=== PATIENT | male | born 1950 | race Caucasian/White ===

== ENCOUNTER 2016-08-08 08:25 | Inpatient (IN) | payer OTHER ==
[2016-08-08] VITALS (14 sets, daily range): BP systolic 72–123; BP diastolic 56–73
[~2016-08-08] VITALS: Ht 162.6 cm; Wt 80.0 kg
[~2016-08-08 08:25] MED LIST: ASPIR-LOW81 MG PO; ATORVASTATIN CA40 MG PO; CLOPIDOGREL75 MG PO; TRIAMTERENE-HC1 EACH PO
[2016-08-08 08:51] LABS: EOSINOPHIL (%) 0.9 % (0-5); EOSINOPHIL COUNT 0.1 K/uL (0-0.3); HEMATOCRIT 54.7 % (38.0-50.0); IMMATURE GRANULOCYTE (%) 0.5 % (0.0-0.7); IMMATURE GRANULOCYTE COUNT 0.1 K/uL; INSTRUMENT ABS NEUTROPHIL CT 8.1 K/uL; LYMPHOCYTE COUNT 1.7 K/uL (1.0-2.8); MCH 29.6 PG (29.0-34.0); MEAN PLAT.VOLUME 9.4 uM^3 (9.0-12.4); MONOCYTE COUNT 0.8 K/uL (0-0.8); NEUTROPHIL (%) 75.8 % (45-76); NEUTROPHIL COUNT 8.1 K/uL (1.8-6.4); PLATELET COUNT 270 K/uL (156-360); RBC DIS.WIDTH-CV 14.7 % (11.8-14.6); RBC DIS.WIDTH-SD 45.6 % (39-53); RED BLOOD COUNT 6.29 M/uL (4.00-5.50); WHITE BLOOD COUNT 10.7 K/uL (4.1-10.2)
[2016-08-08 09:03] LABS: AMYLASE 68 IU/L (1-118); CHLORIDE 99 mEq/L (99-109); POTASSIUM 4.7 mEq/L (3.7-5.4); SODIUM 133 mEq/L (136-147)
[2016-08-08 09:05] LABS: GLUCOSE 262 mg/dL (70-99)
[2016-08-08 09:06] LABS: ANION GAP 15 MEQ/L (2-14); INTER. NORMALIZED RATIO 1.2; PROTHROMBIN TIME 12.7 (9.2-11.2); PTT 147.3 (25-32)
[2016-08-08 09:08] LABS: SERUM ETHYL ALCOHOL < 10 mg/dL
[2016-08-08 09:09] LABS: GFR ESTIMATE (CALCULATED) > 59 mL/min/
[2016-08-08 09:10] LABS: UREA NITROGEN (BUN) 12 mg/dL (9-23)
[2016-08-08 09:12] LABS: LIPASE 255 U/L (1.0-51.0)
[2016-08-08 09:18] LABS: TROP-I INTERPRETATION POSITIVE; TROPONIN-I 0.71 ng/mL (0.0-0.30)
[2016-08-08] MEDS ORDERED: METFORMIN HCL1000 MG PO (11:26)
[2016-08-08 12:12] LABS: METH RESISTANT S AUREUS PCR NEGATIVE (NEGATIVE); PROBE CHECK PASS; SPECIMEN PROCESSING CONTROL PASS
[2016-08-08 12:27] LABS: HDL CHOLESTEROL 32 MG/DL (Desirable>=40); LDL CHOLESTEROL 149 mg/dL (Desirable<100); NON-HDL CHOLESTEROL 172 mg/dL (Desirable<160); TOTAL CHOLESTEROL 204 mg/dL (Desirable<200); TRIGLYCERIDES 116 MG/DL (Normal: <150)
[2016-08-08 12:33] LABS: POINT-OF-CARE METER ID UU14174217
[2016-08-08 14:19] LABS: Estimated Average Glucose 306 mg/dL (70-123); HEMOGLOBIN A1c (GLYCOHEMOGLOB) 12.3 % HGB (Below 5.7)
[2016-08-08 17:53] LABS: POINT-OF-CARE METER ID UU14174217
[2016-08-08 21:08] LABS: TROPONIN-I 25.31 ng/mL (0.0-0.30)
[2016-08-08 21:09] LABS: TROP-I INTERPRETATION POSITIVE
[2016-08-08 21:11] LABS: CREATINE KINASE 571 IU/L (1-294); TOTAL CK 571 IU/L (1-294)
[2016-08-08 21:37] LABS: CK-MB 82.5 ng/mL (0.0-4.9)
[2016-08-08 22:20] LABS: POINT-OF-CARE METER ID UU14174217
[2016-08-09] VITALS (18 sets, daily range): BP systolic 90–135; BP diastolic 57–84
[2016-08-09 08:19] LABS: EOSINOPHIL COUNT 0.1 K/uL (0-0.3); IMMATURE GRANULOCYTE (%) 0.4 % (0.0-0.7); INSTRUMENT ABS NEUTROPHIL CT 6.9 K/uL; LYMPHOCYTE COUNT 1.8 K/uL (1.0-2.8); MCH 29.1 PG (29.0-34.0); MCHC 32.5 G/DL (30.0-36.0); MCV 89.6 FL (86-99); MEAN PLAT.VOLUME 9.5 uM^3 (9.0-12.4); MONOCYTE (%) 10.3 % (3-12); NEUTROPHIL (%) 69.5 % (45-76); NEUTROPHIL COUNT 6.9 K/uL (1.8-6.4); PLATELET COUNT 201 K/uL (156-360); RBC DIS.WIDTH-CV 14.8 % (11.8-14.6); RBC DIS.WIDTH-SD 48.5 % (39-53); RED BLOOD COUNT 5.36 M/uL (4.00-5.50)
[2016-08-09 08:40] LABS: TROP-I INTERPRETATION POSITIVE; TROPONIN-I 12.13 ng/mL (0.0-0.30)
[2016-08-09 08:44] LABS: CREATINE KINASE 347 IU/L (1-294); TOTAL CK 347 IU/L (1-294)
[2016-08-09 08:51] LABS: ANION GAP 8 MEQ/L (2-14); CHLORIDE 105 MEQ/L (99-109); GFR ESTIMATE (CALCULATED) > 59 mL/min/; GLUCOSE 187 mg/dL (70-99); POTASSIUM 4.4 MEQ/L (3.7-5.4); SAMPLE HEMOLYSIS CHECK 0; SAMPLE ICTERIC CHECK 0; SAMPLE LIPEMIA CHECK 0; SODIUM 134 MEQ/L (136-147); UREA NITROGEN (BUN) 12 mg/dL (9-23)
[2016-08-09 09:02] LABS: CK-MB 39.6 ng/mL (0.0-4.9)
[2016-08-09] MEDS ORDERED: ASPIR 8181 M1 PO (17:06)
[2016-08-09 20:08] LABS: CREATINE KINASE 276 IU/L (1-294); TOTAL CK 276 IU/L (1-294)
[2016-08-09 20:16] LABS: TROP-I INTERPRETATION POSITIVE
[2016-08-09 20:36] LABS: CK-MB 27.4 ng/mL (0.0-4.9)
[2016-08-09 21:23] LABS: POINT-OF-CARE METER ID UU13113781
[2016-08-10 00:23] VITALS: BP 114/61
[2016-08-10 05:33] VITALS: BP 119/70
[2016-08-10 06:42] LABS: HEMATOCRIT 47.8 % (38.0-50.0); MCH 29.6 PG (29.0-34.0); MCHC 33.3 G/DL (30.0-36.0); MCV 88.8 FL (86-99); MEAN PLAT.VOLUME 9.6 uM^3 (9.0-12.4); PLATELET COUNT 217 K/uL (156-360); RBC DIS.WIDTH-CV 14.5 % (11.8-14.6); RBC DIS.WIDTH-SD 47.3 % (39-53); RED BLOOD COUNT 5.38 M/uL (4.00-5.50); WHITE BLOOD COUNT 8.8 K/uL (4.1-10.2)
[2016-08-10 07:02] LABS: ANION GAP 9 MEQ/L (2-14); CHLORIDE 102 MEQ/L (99-109); GFR ESTIMATE (CALCULATED) > 59 mL/min/; GLUCOSE 187 mg/dL (70-99); POTASSIUM 4.4 MEQ/L (3.7-5.4); SAMPLE HEMOLYSIS CHECK 0; SAMPLE ICTERIC CHECK 0; SAMPLE LIPEMIA CHECK 0; SODIUM 136 MEQ/L (136-147); UREA NITROGEN (BUN) 13 mg/dL (9-23)
[2016-08-10 07:29] VITALS: BP 105/57
[2016-08-10] MEDS ORDERED: EFFIENT10 MG PO (11:03)
[2016-08-10] MEDS ORDERED: NICOTINE PATCH1 EAC2 TD (11:03)
[2016-08-10] MEDS ORDERED: NITROSTAT0.4 MG SL (11:04)
[2016-08-10] MEDS ORDERED: ATORVASTATIN CA80 MG PO (11:04)
[2016-08-10] MEDS ORDERED: ASPIRIN EC325 MG PO (11:05)
[2016-08-10] MEDS ORDERED: LOPRESSOR25 MG PO (11:05)
[2016-08-10] MEDS ORDERED: LISINOPRIL2.5 MG PO (11:05)
== END 2016-08-10 12:00 | disposition home or self-care (01) | DRG 247 ==
LOC: EME → EDBD 08:25 → EME 08:25 → CATH 09:03 → EME 09:03 → 4EAST 10:42 → 4WEST 10:42 → 4EAST 08-09 16:01
PROVIDERS: Emergency Medicine; Internal Medicine Cardiovascular Disease; Internal Medicine Interventional Cardiology; Internal Medicine Pulmonary Disease
DX: I21.11 ST elevation (STEMI) myocardial infarction involving right coronary artery (principal); I25.10 Atherosclerotic heart disease of native coronary artery without angina pectoris; I25.5 Ischemic cardiomyopathy; I34.0 Nonrheumatic mitral (valve) insufficiency; E78.5 Hyperlipidemia, unspecified; E11.9 Type 2 diabetes mellitus without complications; I73.9 Peripheral vascular disease, unspecified; F17.210 Nicotine dependence, cigarettes, uncomplicated; Z79.84 Long term (current) use of oral hypoglycemic drugs; Z88.0 Allergy status to penicillin
CPT/HCPCS: 71010; 80048; 80061; 81003; 82150; 82550; 82550 91; 82553; 82565; 82948; 83036; 83690; 84484; 84520; 85025; 85027; 85347; 85610; 85730; 86900; 86901; 87641; 93005; 94799; 99281; 99284; C1725; C1760; C1769; C1874; C1887; C1894; G0480; J0461; J1644; J1815; J2250; J2405; J3010; J7030

== ENCOUNTER 2017-11-28 16:18 | Inpatient (IN) | payer OTHER ==
[~2017-11-28] VITALS: Ht 162.6 cm; Wt 65.6 kg
[~2017-11-28 16:18] MED LIST changes: +ASPIR 8181 M1 PO; +ASPIRIN EC325 MG PO; +ATORVASTATIN CA80 MG PO; +EFFIENT10 MG PO; +LISINOPRIL2.5 MG PO; +LOPRESSOR25 MG PO; +METFORMIN HCL1000 MG PO; +NICOTINE PATCH1 EAC2 TD; +NITROSTAT0.4 MG SL
[2017-11-28 17:25] LABS: BASOPHIL (%) 0.3 % (0-1); EOSINOPHIL (%) 2.2 % (0-5); EOSINOPHIL COUNT 0.3 K/uL (0-0.3); HEMATOCRIT 45.6 % (38.0-50.0); HEMOGLOBIN 15.3 G/DL (12.5-16.6); IMMATURE GRANULOCYTE (%) 0.4 % (0.0-0.7); LYMPHOCYTE (%) 13.7 % (15-42); LYMPHOCYTE COUNT 1.6 K/uL (1.0-2.8); MCH 28.8 PG (29.0-34.0); MCHC 33.6 G/DL (30.0-36.0); MCV 85.9 FL (86-99); MONOCYTE (%) 9.2 % (3-12); NEUTROPHIL (%) 74.2 % (45-76); NEUTROPHIL COUNT 8.4 K/uL (1.8-6.4); PLATELET COUNT 395 K/uL (156-360); RBC DIS.WIDTH-CV 15.3 % (11.8-14.6); RBC DIS.WIDTH-SD 48.2 % (39-53); RED BLOOD COUNT 5.31 M/uL (4.00-5.50); WHITE BLOOD COUNT 11.3 K/uL (4.1-10.2)
[2017-11-28 17:34] LABS: PTT 31.2 SEC (25-37)
[2017-11-28 17:37] LABS: CHLORIDE 102 mEq/L (99-109); SODIUM 138 mEq/L (136-147)
[2017-11-28 17:39] LABS: GLUCOSE 98 mg/dL (70-99)
[2017-11-28 17:43] LABS: CREATININE 0.9 mg/dL (0.6-1.3); GFR ESTIMATE (CALCULATED) > 59 mL/min/ (58.99-99999)
[2017-11-28 17:44] LABS: UREA NITROGEN (BUN) 15 mg/dL (9-23)
[2017-11-28] MEDS ORDERED: METFORMIN HCL500 MG PO (19:36)
[2017-11-28] MEDS ORDERED: SIMVASTATIN80 MG PO (19:37)
[2017-11-28] MEDS ORDERED: GLIMEPIRIDE2 MG PO (19:37)
[2017-11-28] MEDS ORDERED: DICLOFENAC POTA50 MG PO (19:37)
[2017-11-28] MEDS ORDERED: METFORMIN HCL500 M1 PO (19:38)
[2017-11-28] MEDS ORDERED: LISINOPRIL5 MG PO (19:38)
[2017-11-28] MEDS ORDERED: ASPIRIN325 MG PO (19:39)
[2017-11-28 20:33] VITALS: BP 107/74
[2017-11-28 23:34] VITALS: BP 119/58
[2017-11-29 03:45] VITALS: BP 130/61
[2017-11-29 11:29] VITALS: BP 129/58
[2017-11-29 15:04] VITALS: BP 137/80
[2017-11-29 19:51] VITALS: BP 102/52
[2017-11-29 19:55] VITALS: BP 114/59
[2017-11-29 23:22] VITALS: BP 130/62
[2017-11-30 07:48] VITALS: BP 129/60
[2017-11-30 15:56] VITALS: BP 103/57
[2017-11-30] MEDS ORDERED: TYLENOL REGULA325 MG PO (22:15)
[2017-11-30] MEDS ORDERED: KEFLEX500 MG PO (22:16)
[2017-11-30] MEDS ORDERED: FAMOTIDINE20 MG PO (22:16)
[2017-11-30 23:28] VITALS: BP 139/69
[2017-12-01 07:50] VITALS: BP 110/68
== END 2017-12-01 13:34 | disposition home or self-care (01) | DRG 603 ==
LOC: EME 16:18 → 3EAST 19:12 → EDOF 19:12 → ENRESERV 19:16 → 3EAST 20:08
PROVIDERS: Emergency Medicine
DX: L03.115 Cellulitis of right lower limb (principal); L03.116 Cellulitis of left lower limb; B35.1 Tinea unguium; E11.51 Type 2 diabetes mellitus with diabetic peripheral angiopathy without gangrene; E78.5 Hyperlipidemia, unspecified; F17.210 Nicotine dependence, cigarettes, uncomplicated; F10.10 Alcohol abuse, uncomplicated; I10 Essential (primary) hypertension; I25.10 Atherosclerotic heart disease of native coronary artery without angina pectoris; I87.2 Venous insufficiency (chronic) (peripheral); J44.9 Chronic obstructive pulmonary disease, unspecified; L30.9 Dermatitis, unspecified; M19.90 Unspecified osteoarthritis, unspecified site; Z79.84 Long term (current) use of oral hypoglycemic drugs; Z79.82 Long term (current) use of aspirin; Z95.5 Presence of coronary angioplasty implant and graft; Z88.0 Allergy status to penicillin; Z98.62 Peripheral vascular angioplasty status; Y90.9 Presence of alcohol in blood, level not specified; Z83.3 Family history of diabetes mellitus; Z82.49 Family history of ischemic heart disease and other diseases of the circulatory system
CPT/HCPCS: 80048; 83605; 85025; 85610; 85730; 87040; J0690; J1650; J1956; J3370